=== PATIENT | female | born 1995 | race Caucasian/White ===

== ENCOUNTER → 2021-01-22 | Outpatient (CLI) | payer BC ==
--- NOTE | 2021-01-23 06:45 | CT ---
EXAMINATION TYPE: CT abdomen pelvis wo con DATE OF EXAM: 01/22/2021 HISTORY: right pelvic pain x2 months CT DLP: 826.8 mGycm. Automated Exposure Control for Dose Reduction was Utilized. TECHNIQUE: CT scan of the abdomen and pelvis is performed with oral but without IV contrast. COMPARISON: NONE FINDINGS: Within the limitations of a non-contrast study, the following observations are made. LUNG BASES: No significant abnormality is appreciated. LIVER/GB: No significant abnormality is appreciated. PANCREAS: No significant abnormality is seen. SPLEEN: No significant abnormality is seen. ADRENALS: No significant abnormality is seen. KIDNEYS: Asymmetric fullness to right renal pelvis without calyceal dilatation or hydroureter consist ent with extrarenal pelvis. BOWEL: Oral contrast reaches level of the right colon. No suspicious small or large bowel dilatation. GENITAL ORGANS: Anteverted uterus. Normal size left ovary axial image 78. Right ovary is slightly lar george with adnexal lesion measuring 3.3 x 3.1 cm axial image 81, this has areas of fat, soft tissue, an d fluid density consistent with dermoid. LYMPH NODES: No greater than 1cm abdominal or pelvic lymph nodes are appreciated. OSSEOUS STRUCTURES: No significant abnormality is seen. OTHER: No significant additional abnormality is seen. IMPRESSION: There is 3.3 cm right ovarian mass that has different densities including fat density con sistent with dermoid. Advise gynecology oncology referral.
== END | disposition home or self-care (01) ==
LOC: RADCTMAIN 16:51
PROVIDERS: ATTEND Family Medicine
DX: N83.8 Other noninflammatory disorders of ovary, fallopian tube and broad ligament (principal)
CPT/HCPCS: 74176

== ENCOUNTER → 2021-02-10 | Outpatient (CLI) | payer BC | END | disposition home or self-care (01) | LOC: LABWHC1 16:32 | PROVIDERS: ATTEND Obstetrics & Gynecology Obstetrics | DX: N83.209 Unspecified ovarian cyst, unspecified side (principal); N83.8 Other noninflammatory disorders of ovary, fallopian tube and broad ligament | CPT/HCPCS: 36415 ==

== ENCOUNTER 2022-03-04 12:12 | Outpatient (CLI) | payer BC ==
[2022-03-04 13:16] LABS: Appearance,Urine Clear (Clear); Bilirubin,Urine Negative (Negative); Blood,Urine Negative (Negative); Color,Urine Colorless; Glucose,Urine (UA) Negative (Negative); Ketones,Urine 1+ (Negative); Leukocyte Esterase,Urine Negative (Negative); Nitrite,Urine Negative (Negative); Protein,Urine Negative (Negative); Specific Gravity,Urine 1.002 (1.001-1.035); Urobilinogen,Urine <2.0 mg/dL (<2.0)
[2022-03-04 13:27] LABS: Glucose,Whole Blood 67 mg/dL (70-110)
[2022-03-04 14:09] VITALS: BP 125/65; PULSE 81; RESP 16; TEMP 98.1
--- NOTE | 2022-03-09 14:38 | P.MSEPDOC ---
Presenting Problems - Arrival Data Date of Arrival on Unit: 03/04/22 Time of Arrival on Unit: 12:12 Mode of Transport: Ambulatory - Complaint OB-Reason for Admission/Chief Complaint: Other Comment: pt feeling flushed and racing heartrate Medical History - Information : 1 Para: 0 Term: 0 : 0 Abortions: Spontaneous or Elective: 0 Number of Living Children: 0 - Gestational Age Gestational Age by ARMANDO (wks/days): 17 Weeks and 6 Days Review of Systems - Review of Systems Constitutional: No problems Breast: No problems ENT: No problems Cardiovascular: No problems Respiratory: No problems Gastrointestinal: No problems Genitourinary: No problems Musculoskeletal: No problems Neurological: No problems Skin: No problems Comment: pt's face is very flushed in appearance Vital Signs - Temperature Temperature: 98.1 F Temperature Source: Temporal Artery Scan - Pulse Right Pulse Rate: 81 Pulse Assessment Method: Automatic Cuff - Respirations Respiratory Rate: 16 Oxygen Delivery Method: Room Air O2 Sat by Pulse Oximetry: 100 - Blood Pressure Right Arm Blood Pressure: 125/65 Blood Pressure Mean: 85 Blood Pressure Source: Automatic Cuff Medical Screen Scoring - Assessment - Baby A Baseline FHR: 140 Heart Rate - NICHD Category: Category I (Normal) Physician Notification - Physician Notified Physician Notified Date: 03/04/22 Physician Notified Time: 12:45 Physician: Melanie Bills New Order Received: Yes (ua, covid/flu swab serial pressures) Maternal Triage Index - Scheduled/Requesting Priority 5 Scheduled/Requesting Priority 5: Yes Criteria Met for Priority 5: 17 6/7 presents with flushed skin, perceived rapid heartrate however vitals are wnl and doppler reveals fhr 140, Disposition - Disposition OB Disposition: Triage Discharge Date: 03/04/22 Discharge Time: 14:55 I agree with the RN Medical Screening Exam: Yes Case reviewed; plan agreed upon as documented in EMR&OBIX.: Yes Diagnosis: RELATED CONDITIONS, UNSPECIFIED, SECOND TRIMESTER
== END 2022-03-04 14:55 | disposition home or self-care (01) ==
LOC: FBPOP 12:12
PROVIDERS: ATTEND Obstetrics & Gynecology Obstetrics
DX: O26.892 Other specified pregnancy related conditions, second trimester (principal); Z3A.17 17 weeks gestation of pregnancy; R00.0 Tachycardia, unspecified; R03.0 Elevated blood-pressure reading, without diagnosis of hypertension
CPT/HCPCS: 81003; 87636; 99213

== ENCOUNTER → 2022-05-21 | Outpatient (CLI) | payer BC ==
[2022-05-21 22:59] LABS: HCT 38.9 % (37.2-46.3); MCH 27.8 pg (27.0-32.0); MCHC 30.8 g/dL (32.0-37.0); Mean Platelet Volume 11.9 fL (9.5-12.2); NRBC Per 100 WBC 0 /100 WBCS (0.0-0.0); Platelet Count 201 X 10*3/uL (140-440); RBC 4.32 X 10*6/uL (4.10-5.20); RDW 14.8 % (11.5-14.5); WBC 13.16 X 10*3/uL (4.50-10.00)
== END | disposition home or self-care (01) ==
LOC: LABWHC1 13:35
PROVIDERS: ATTEND Obstetrics & Gynecology Obstetrics
DX: Z36.9 Encounter for antenatal screening, unspecified (principal)
CPT/HCPCS: 36415; 82950; 85027

== ENCOUNTER 2022-07-11 01:28 | Outpatient (CLI) | payer BC ==
[2022-07-11 03:14] VITALS: BP 134/78; PULSE 75; RESP 16; TEMP 97.4
--- NOTE | 2022-08-15 10:16 | P.MSEPDOC ---
Presenting Problems - Arrival Data Date of Arrival on Unit: 07/11/22 Time of Arrival on Unit: 01:28 Mode of Transport: Ambulatory - Complaint OB-Reason for Admission/Chief Complaint: Pain Comment: Pt is a with ARMANDO 08/06/22 here at 36.2 weeks of gestation with c/o. right-sided upper back pain, just under the right shoulder blade. Pt rates the pain 7/10. on a 0-10 scale. Pt denies any other concerns or complications at this time. Medical History - Information : 1 Para: 0 Term: 0 : 0 Abortions: Spontaneous or Elective: 0 Number of Living Children: 0 - Gestational Age Gestational Age by ARMANDO (wks/days): 36 Weeks and 2 Days Review of Systems - Review of Systems Constitutional: No problems Breast: No problems ENT: No problems Cardiovascular: No problems Respiratory: No problems Gastrointestinal: No problems Genitourinary: No problems Musculoskeletal: No problems Neurological: No problems Skin: No problems Vital Signs - Temperature Temperature: 97.4 F Temperature Source: Temporal Artery Scan - Pulse Pulse Oximetery Pulse Rate: 75 Pulse Assessment Method: Pulse Oximetry - Respirations Respiratory Rate: 16 Oxygen Delivery Method: Room Air O2 Sat by Pulse Oximetry: 100 - Blood Pressure Right Arm Blood Pressure: 134/78 Blood Pressure Mean: 96 Blood Pressure Source: Automatic Cuff Medical Screen Scoring - Cervical Exam Membranes: Intact - Uterine Contractions Frequency From (mins): 4 Frequency To (mins): 8 Duration From (seconds): 50 Duration To (seconds): 100 Intensity: Mild Resting: Soft to palpation - Assessment - Baby A Baseline FHR: 125 Heart Rate - NICHD Category: Category I (Normal) NST: Reactive Physician Notification - Physician Notified Physician Notified Date: 07/11/22 Physician Notified Time: 01:46 Physician: Melanie Bills S - Notification Comment Comment: Dr. Bills notified of pt's arrival to triage. Pt had spoken with physician. prior to arrival. Maternal and status reported including location and quality of. pt's pain, FHTs and uterine activity. Orders for SVE d/t UC's, repeat in 1 hour, if no. change can D/C home. RN to discuss POC with pt and SO. Maternal Triage Index - Maternal Triage Index Presenting for scheduled procedure w/no complaint: No - Stat/Priority 1 Stat Priority 1: No - Urgent/Priority 2 Urgent Priority 2: No - Prompt/Priority 3 Prompt Priority 3: No - Non-Urgent/Priority 4 Non-Urgent Priority 4: Yes Criteria Met for Priority 4: Pt is a with ARMANDO 08/06/22 here at 36.2 weeks of gestation with c/o. right-sided upper back pain, just under the right shoulder blade. Pt rates the pain 7/10. on a 0-10 scale. Pt denies any other concerns or complications at this time. Disposition - Disposition OB Disposition: Discharge to home Discharge Date: 07/11/22 Discharge Time: 03:06 I agree with the RN Medical Screening Exam: Yes Case reviewed; plan agreed upon as documented in EMR&OBIX.: Yes Diagnosis: RELATED CONDITIONS, UNSPECIFIED, THIRD TRIMESTER
== END 2022-07-11 03:06 ==
LOC: FBPOP 01:28
PROVIDERS: ATTEND Obstetrics & Gynecology Obstetrics
DX: O26.893 Other specified pregnancy related conditions, third trimester (principal); M54.6 Pain in thoracic spine; Z3A.36 36 weeks gestation of pregnancy
CPT/HCPCS: 59025; 99213

== ENCOUNTER 2022-07-15 10:50 | Outpatient (CLI) | payer BC ==
[2022-07-15] MEDS ORDERED: ONDANSETRON 4 MG/2 ML VIAL IVP STA (11:57)
[2022-07-15] MEDS ORDERED: ACETAMINOPHEN IV (For NPO) 1,000 MG in EMPTY BAG 1 BAG IVPB STA (11:57)
[2022-07-15] MEDS ORDERED: LACTATED RINGERS 1,000 ML IV SCH (12:00)
[2022-07-15 12:06] LABS: Appearance,Urine Clear (Clear); Bacteria,Urine Rare /hpf; Bilirubin,Urine Negative (Negative); Blood,Urine Negative (Negative); Color,Urine Light Yellow; Glucose,Urine (UA) Negative (Negative); Ketones,Urine Negative (Negative); Leukocyte Esterase,Urine Trace (Negative); Mucus,Urine Rare /hpf; Nitrite,Urine Negative (Negative); PH, Urine 6.5 (5.0-8.0); Protein,Urine Negative (Negative); RBC,Urine 1 /hpf (0-5); Squamous Epithelial Cell,Urine 6 /hpf (0-4); Urobilinogen,Urine <2.0 mg/dL (<2.0); WBC,Urine 1 /hpf (0-5)
[2022-07-15 13:00] LABS: Basophils % (A) 0 %; Eosinophils # (A) 0.1 k/uL (0-0.7); Eosinophils % (A) 1 %; HCT 36.7 % (34.0-46.0); HGB 11.9 gm/dL (11.4-16.0); Lymphocytes # (A) 1.5 k/uL (1.0-4.8); Lymphocytes % (A) 13 %; MCH 27.5 pg (25.0-35.0); MCHC 32.5 g/dL (31.0-37.0); MCV 84.8 fL (80.0-100.0); Mean Platelet Volume 9.6; Monocytes # (A) 0.4 k/uL (0-1.0); Monocytes % (A) 4 %; Neutrophils # (A) 9.1 k/uL (1.3-7.7); Neutrophils % (A) 81 %; Platelet Count 168 k/uL (150-450); RBC 4.33 m/uL (3.80-5.40); WBC 11.3 k/uL (3.8-10.6)
[2022-07-15 13:11] LABS: Uric Acid 3.5 mg/dL (3.7-7.4)
[2022-07-15 13:26] LABS: Creatinine,Urine Random 61.7 mg/dL; Protein/Creatinine Ratio,Urine 0.13
[2022-07-15 21:53] VITALS: BP 133/83; PULSE 88; RESP 16; TEMP 97.3
--- NOTE | 2022-08-15 10:18 | P.MSEPDOC ---
Presenting Problems - Arrival Data Date of Arrival on Unit: 07/15/22 Time of Arrival on Unit: 10:50 Mode of Transport: Ambulatory - Complaint OB-Reason for Admission/Chief Complaint: Headache Comment: Comment: pt has severe headache and nausea today starting around 0130 Medical History - Information : 1 Para: 0 Term: 0 : 0 Abortions: Spontaneous or Elective: 0 Number of Living Children: 0 - Gestational Age Gestational Age by ARMANDO (wks/days): 36 Weeks and 6 Days Review of Systems - Review of Systems Constitutional: No problems Breast: No problems ENT: No problems Cardiovascular: No problems Respiratory: No problems Gastrointestinal: No problems Genitourinary: No problems Musculoskeletal: No problems Neurological: No problems Skin: No problems Comment: Dr. Bills in dept and given report on pt's c/o headache and nausea that started. at 0130 this am, took tylenol but did not seem to help, reactive nst, irregular. contrations, ua results not back yet, orders to give 1 liter of LR, zofran and. offirmive, Vital Signs - Temperature Temperature: 97.3 F Temperature Source: Tympanic - Pulse Right Pulse Rate: 88 Pulse Assessment Method: Automatic Cuff - Respirations Respiratory Rate: 16 Oxygen Delivery Method: Room Air O2 Sat by Pulse Oximetry: 100 - Blood Pressure Right Arm Blood Pressure: 133/83 Blood Pressure Mean: 99 Blood Pressure Source: Automatic Cuff Medical Screen Scoring - Assessment - Baby A Baseline FHR: 130 Heart Rate - NICHD Category: Category I (Normal) NST: Reactive Physician Notification - Physician Notified Physician Notified Date: 07/15/22 Physician Notified Time: 13:30 Physician: Melanie Bills New Order Received: Yes - Notification Comment Comment: DISCHARGE Maternal Triage Index - Maternal Triage Index Presenting for scheduled procedure w/no complaint: No - Stat/Priority 1 Stat Priority 1: No - Urgent/Priority 2 Urgent Priority 2: No - Prompt/Priority 3 Prompt Priority 3: Yes Criteria Met for Priority 3: discussed isolated elevated bp of 161/[address] Bills. Decision made to do PIH. work up. Lab orders entered - Non-Urgent/Priority 4 Non-Urgent Priority 4: Yes Criteria Met for Priority 4: 3 Disposition - Disposition OB Disposition: Discharge to home Discharge Date: 07/15/22 Discharge Time: 14:00 I agree with the RN Medical Screening Exam: Yes Case reviewed; plan agreed upon as documented in EMR&OBIX.: Yes Diagnosis: HEADACHE, UNSPECIFIED
== END 2022-07-15 14:00 | disposition home or self-care (01) ==
LOC: FBPOP 10:50
PROVIDERS: ATTEND Obstetrics & Gynecology Obstetrics
DX: O99.891 Other specified diseases and conditions complicating pregnancy (principal); R51.9 Headache, unspecified; R11.0 Nausea; Z3A.36 36 weeks gestation of pregnancy
CPT/HCPCS: 59025; 99213; 96361; 96365; 96367; 96375; 36415; 82570; 84156; 83615; 84450; 84460; 84520; 84550; 85025; 81001; J2405; J0131

== ENCOUNTER 2022-07-29 20:34 | Inpatient (IN) | payer BC ==
[2022-07-29] MEDS ORDERED: ACETAMINOPHEN IV (For NPO) 1,000 MG in EMPTY BAG 1 BAG IVPB STA (20:55)
[2022-07-29] MEDS: LACTATED RINGERS 1,000 ML IV SCH (21:30)
--- NOTE | 2022-07-29 21:37 | US ---
EXAMINATION TYPE: US gallbladder DATE OF EXAM: 07/29/2022 COMPARISON: CT abdomen and pelvis January 22, 2021 CLINICAL HISTORY: abdominal pain. Epigastric pain. Pt is TECHNIQUE: Multiple sonographic images of the right upper quadrant are obtained. 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 Dilated margins Evidence for sonographic [place]'s sign: No CBD: wnl Right Kidney: Moderate to severe hydronephrosis seen. Visualized pancreas is unremarkable. Portion of distal body and tail obscured by overlying bowel gas. Visualized liver shows no worrisome mass or ductal dilatation. There are small mobile shadowing gall stones. No abnormal wall thickening or adjacent fluid. IMPRESSION: Small gallstones without secondary ultrasound evidence for acute cholecystitis. Moderate- to-severe right-sided hydronephrosis also noted.
[2022-07-29 22:05] LABS: Basophils % (A) 0 %; Eosinophils % (A) 0 %; HGB 12.1 gm/dL (11.4-16.0); Lymphocytes % (A) 7 %; MCH 27.6 pg (25.0-35.0); MCHC 32.7 g/dL (31.0-37.0); MCV 84.4 fL (80.0-100.0); Mean Platelet Volume 9.7; Monocytes # (A) 0.6 k/uL (0-1.0); Monocytes % (A) 4 %; Neutrophils # (A) 13.5 k/uL (1.3-7.7); Neutrophils % (A) 88 %; Platelet Count 183 k/uL (150-450); RBC 4.39 m/uL (3.80-5.40); WBC 15.3 k/uL (3.8-10.6)
[2022-07-29 22:09] LABS: ALT 44 U/L (4-34); AST 81 U/L (14-36); African American GFR (CKD) >90 (>60 ml/min/1.73 sqM); Albumin 3.1 g/dL (3.5-5.0); Alkaline Phosphatase 187 U/L (38-126); Anion Gap 7 mmol/L; Blood Urea Nitrogen 9 mg/dL (7-17); Calcium 8.5 mg/dL (8.4-10.2); Carbon Dioxide 21 mmol/L (22-30); Chloride 105 mmol/L (98-107); Glucose 122 mg/dL (74-99); Non-African American GFR(CKD) >90 (>60 ml/min/1.73 sqM); Sodium 133 mmol/L (137-145); Total Protein 5.9 g/dL (6.3-8.2)
[2022-07-29] MEDS ORDERED: ACETAMINOPHEN IV (For NPO) 1,000 MG in EMPTY BAG 1 BAG IVPB PRN (23:05)
[2022-07-30] MEDS: LACTATED RINGERS 1,000 ML IV SCH ×4 (05:21→18:17)
[2022-07-30 07:39] LABS: Basophils % (A) 0 %; Eosinophils % (A) 0 %; HGB 12.2 gm/dL (11.4-16.0); Lymphocytes # (A) 1.3 k/uL (1.0-4.8); Lymphocytes % (A) 11 %; MCHC 32.9 g/dL (31.0-37.0); MCV 85.1 fL (80.0-100.0); Mean Platelet Volume 9.7; Monocytes # (A) 0.7 k/uL (0-1.0); Monocytes % (A) 6 %; Neutrophils # (A) 9.5 k/uL (1.3-7.7); Neutrophils % (A) 81 %; Platelet Count 187 k/uL (150-450); RBC 4.35 m/uL (3.80-5.40); RDW 15.1 % (11.5-15.5); WBC 11.7 k/uL (3.8-10.6)
[2022-07-30 08:05] LABS: ALT 74 U/L (4-34); AST 90 U/L (14-36); African American GFR (CKD) >90 (>60 ml/min/1.73 sqM); Albumin 2.9 g/dL (3.5-5.0); Alkaline Phosphatase 210 U/L (38-126); Amylase 47 U/L (30-110); Anion Gap 7 mmol/L; Blood Urea Nitrogen 6 mg/dL (7-17); Calcium 8.2 mg/dL (8.4-10.2); Carbon Dioxide 20 mmol/L (22-30); Chloride 108 mmol/L (98-107); Glucose 81 mg/dL (74-99); Lipase 211 U/L (23-300); Non-African American GFR(CKD) >90 (>60 ml/min/1.73 sqM); Potassium 4.4 mmol/L (3.5-5.1); Sodium 135 mmol/L (137-145); Total Bilirubin 1.2 mg/dL (0.2-1.3); Total Protein 5.5 g/dL (6.3-8.2)
[2022-07-30] MEDS ORDERED: TRANEXAMIC ACID IN NACL,ISO-OS 1,000 MG in EMPTY BAG 1 BAG IV PRN ×2 (08:28→21:10)
[2022-07-30] MEDS ORDERED: OXYTOCIN 10 UNIT/ML 1 ML VIAL IM PRN ×2 (08:28→21:10)
[2022-07-30] MEDS ORDERED: miSOPROStoL 200 MCG TAB PO PRN ×2 (08:28→21:10)
[2022-07-30] MEDS ORDERED: BUTORPHANOL 1 MG/ML 1 ML VIAL IV PRN (08:28)
[2022-07-30] MEDS ORDERED: CARBOPROST TROMETHAMINE 250 MCG/ML 1 ML AMP IM PRN ×2 (08:28→21:10)
[2022-07-30] MEDS ORDERED: METHYLERGONOVINE 0.2 MG/ML 1 ML AMP IM PRN ×2 (08:28→21:10)
[2022-07-30] MEDS ORDERED: LIDOCAINE 0.5% (PF) 5 MG/ML (50 ML SDV) SQ PRN (08:28)
[2022-07-30] MEDS ORDERED: TERBUTALINE 1 MG/ML VIAL SQ PRN (08:28)
--- NOTE | 2022-07-30 08:28 | P.HPOB ---
History of Present Illness H&P Date: 07/30/22 Chief Complaint: IUP at 39-0/7 weeks, acute biliary colic This is a 27-year-old 1 para 0 at 39-0/7 weeks that presented last evening with complaints of severe right upper quadrant pain. Patient states she had eaten a full pork sandwich and had a Dairy Lira blizzard onto the pain was after eating. Patient states she has had pain at times throughout the with nausea diaphoresis in the thoracic area. Patient states pain last night was different and more intense. Patient presented to triage where acute biliary colic was appreciated. Ultrasound revealing stones within the gallbladder c/w acute cholecystitis. Patient has been receiving routine care which has been essentially uncomplicated. Patient does note good movement she denies contractions vaginal bleeding or loss of fluid. On bloodwork this patient is a blood type of O+, rubella status immune, hepatitis B surface antigen negative, RPR is nonreactive, HIV is nonreactive Review of Systems Constitutional: Denies chills, Denies fatigue, Denies fever Ears, nose, mouth and throat: Denies headache Cardiovascular: Reports leg edema Respiratory: Denies dyspnea Gastrointestinal: Reports as per HPI, Reports abdominal pain, Reports nausea, Reports vomiting, Denies constipation, Denies diarrhea Genitourinary: Reports Past Medical History Past Medical History: No Reported History History of Any Multi-Drug Resistant Organisms: None Reported Past Surgical History: No Surgical Hx Reported Smoking Status: Never smoker Medications and Allergies Home Medications Medication Instructions Recorded Confirmed Type Aspirin [Children's Aspirin] 81 mg PO DAILY 03/04/22 07/15/22 History Vit No.179/Iron/Folic 1 each PO DAILY 07/11/22 07/15/22 History [ Tablet] Acetaminophen [Tylenol] 325 mg PO Q4-6H PRN 07/15/22 07/15/22 History Allergies Allergy/AdvReac Type Severity Reaction Status Date / Time No Known Allergies Allergy Verified 07/15/22 11:06 Exam Osteopathic Statement: *. No significant issues noted on an osteopathic struc tural exam other than those noted in the History and Physical/Consult. 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 heart tones are noted to be category 1 and she is tracey irregularly. Results Result Diagrams: 07/30/22 07:08 07/30/22 07:08 Abnormal Lab Results - Last 24 Hours (Table) 07/29/22 07/29/22 07/30/22 Range/Units 21:25 21:25 07:08 WBC 15.3 H 11.7 H (3.8-10.6) k/uL Neutrophils # 13.5 H 9.5 H (1.3-7.7) k/uL Sodium 133 L (137-145) mmol/L Chloride (98-107) mmol/L Carbon Dioxide 21 L (22-30) mmol/L BUN (7-17) mg/dL Creatinine 0.47 L (0.52-1.04) mg/dL Glucose 122 H (74-99) mg/dL Calcium (8.4-10.2) mg/dL AST 81 H (14-36) U/L ALT 44 H (4-34) U/L Alkaline Phosphatase 187 H (38-126) U/L Total Protein 5.9 L (6.3-8.2) g/dL Albumin 3.1 L (3.5-5.0) g/dL 07/30/22 Range/Units 07:08 WBC (3.8-10.6) k/uL Neutrophils # (1.3-7.7) k/uL Sodium 135 L (137-145) mmol/L Chloride 108 H (98-107) mmol/L Carbon Dioxide 20 L (22-30) mmol/L BUN 6 L (7-17) mg/dL Creatinine (0.52-1.04) mg/dL Glucose (74-99) mg/dL Calcium 8.2 L (8.4-10.2) mg/dL AST 90 H (14-36) U/L ALT 74 H (4-34) U/L Alkaline Phosphatase 210 H (38-126) U/L Total Protein 5.5 L (6.3-8.2) g/dL Albumin 2.9 L (3.5-5.0) g/dL Assessment and Plan (1) Term Current Visit: Yes Status: Acute Code(s): Z34.90 - ENCNTR FOR SUPRVSN OF NORMAL , UNSP, UNSP TRIMESTER SNOMED Code(s): 28869999 (2) Biliary colic Current Visit: Yes Status: Acute Code(s): K80.50 - CALCULUS OF BILE DUCT W/O CHOLANGITIS OR CHOLECYST W/O OBST SNOMED Code(s): 44646926 (3) Acute cholecystitis Current Visit: Yes Status: Acute Code(s): K81.0 - ACUTE CHOLECYSTITIS SNOMED Code(s): 87278767 Plan: 27-year-old 1 para 0 at 39 0/7 weeks that presented last evening with complaints of abdominal pain. Patient had noted elevated liver functions ultrasound revealing cholecystitis. Patient is admitted for induction of labor secondary to acute biliary colic. Patient states understanding. Pitocin induction of labor is begun, amniotomy is performed. Options for analgesia are discussed including Stadol and epidural. Patient will consider.
[2022-07-30] MEDS ORDERED: OXYTOCIN 30 UNITS/500 ML NS 30 UNIT in SALINE 1 500ML.BAG IV SCH (08:30)
--- NOTE | 2022-07-30 16:37 | P.GSCN ---
History of Present Illness Consult date: 07/30/22 Reason for Consult: Right upper quadrant pain History of present illness: 27-year-old female 39 weeks presents to the hospital with right upper quadrant pain. Patient states she has had some milder episodes during this . She was evaluated previously for gallstones with prior ultrasound being normal. His admission ultrasound showed cholelithiasis without inflammatory changes. Patient was also noted to have significant right-sided hydronephrosis. Patient was induced today and progressing well per the nursing staff. No change in the color of her skin urine or stool. Says her right upper quadrant pain is improved but now she is having labor pains. Patient's liver enzymes are slightly elevated. Bilirubin normal. Review of Systems The patient denies any acute changes in vision or hearing, no dysphagia or odynophagia, no chest pain or shortness of breath, no dysuria or hematuria, no headache, no runny nose, no rectal bleeding or melena, no unexplained weight loss Past Medical History Past Medical History: No Reported History History of Any Multi-Drug Resistant Organisms: None Reported Past Surgical History: No Surgical Hx Reported Smoking Status: Never smoker Medications and Allergies Home Medications Medication Instructions Recorded Confirmed Type Aspirin [Children's Aspirin] 81 mg PO DAILY 03/04/22 07/15/22 History Vit No.179/Iron/Folic 1 each PO DAILY 07/11/22 07/15/22 History [ Tablet] Acetaminophen [Tylenol] 325 mg PO Q4-6H PRN 07/15/22 07/15/22 History Allergies Allergy/AdvReac Type Severity Reaction Status Date / Time No Known Allergies Allergy Verified 07/15/22 11:06 Surgical - Exam Vital Signs Temp Pulse Resp BP 96.8 F L 85 18 134/66 07/29/22 20:41 07/29/22 20:41 07/29/22 20:41 07/29/22 20:41 Physical exam: General: Well-developed, well-nourished HEENT: Normocephalic, sclerae nonicteric Abdomen: Gravid abdomen, mild diffuse tenderness Extremities: No edema Neuro: Alert and oriented Results - Labs 07/30/22 07:08 07/30/22 07:08 Abnormal Lab Results - Last 24 Hours (Table) 07/29/22 07/29/22 07/30/22 Range/Units 21:25 21:25 07:08 WBC 15.3 H 11.7 H (3.8-10.6) k/uL Neutrophils # 13.5 H 9.5 H (1.3-7.7) k/uL Sodium 133 L (137-145) mmol/L Chloride (98-107) mmol/L Carbon Dioxide 21 L (22-30) mmol/L BUN (7-17) mg/dL Creatinine 0.47 L (0.52-1.04) mg/dL Glucose 122 H (74-99) mg/dL Calcium (8.4-10.2) mg/dL AST 81 H (14-36) U/L ALT 44 H (4-34) U/L Alkaline Phosphatase 187 H (38-126) U/L Total Protein 5.9 L (6.3-8.2) g/dL Albumin 3.1 L (3.5-5.0) g/dL 07/30/22 Range/Units 07:08 WBC (3.8-10.6) k/uL Neutrophils # (1.3-7.7) k/uL Sodium 135 L (137-145) mmol/L Chloride 108 H (98-107) mmol/L Carbon Dioxide 20 L (22-30) mmol/L BUN 6 L (7-17) mg/dL Creatinine (0.52-1.04) mg/dL Glucose (74-99) mg/dL Calcium 8.2 L (8.4-10.2) mg/dL AST 90 H (14-36) U/L ALT 74 H (4-34) U/L Alkaline Phosphatase 210 H (38-126) U/L Total Protein 5.5 L (6.3-8.2) g/dL Albumin 2.9 L (3.5-5.0) g/dL Diabetes panel 07/29/22 07/30/22 Range/Units 21:25 07:08 Sodium 133 L 135 L (137-145) mmol/L Potassium 4.0 4.4 (3.5-5.1) mmol/L Chloride 105 108 H (98-107) mmol/L Carbon Dioxide 21 L 20 L (22-30) mmol/L BUN 9 6 L (7-17) mg/dL Creatinine 0.47 L 0.53 (0.52-1.04) mg/dL Glucose 122 H 81 (74-99) mg/dL Calcium 8.5 8.2 L (8.4-10.2) mg/dL AST 81 H 90 H (14-36) U/L ALT 44 H 74 H (4-34) U/L Alkaline Phosphatase 187 H 210 H (38-126) U/L Total Protein 5.9 L 5.5 L (6.3-8.2) g/dL Albumin 3.1 L 2.9 L (3.5-5.0) g/dL Calcium panel 07/29/22 07/30/22 Range/Units 21:25 07:08 Calcium 8.5 8.2 L (8.4-10.2) mg/dL Albumin 3.1 L 2.9 L (3.5-5.0) g/dL Pituitary panel 07/29/22 07/30/22 Range/Units 21:25 07:08 Sodium 133 L 135 L (137-145) mmol/L Potassium 4.0 4.4 (3.5-5.1) mmol/L Chloride 105 108 H (98-107) mmol/L Carbon Dioxide 21 L 20 L (22-30) mmol/L BUN 9 6 L (7-17) mg/dL Creatinine 0.47 L 0.53 (0.52-1.04) mg/dL Glucose 122 H 81 (74-99) mg/dL Calcium 8.5 8.2 L (8.4-10.2) mg/dL Adrenal panel 07/29/22 07/30/22 Range/Units 21:25 07:08 Sodium 133 L 135 L (137-145) mmol/L Potassium 4.0 4.4 (3.5-5.1) mmol/L Chloride 105 108 H (98-107) mmol/L Carbon Dioxide 21 L 20 L (22-30) mmol/L BUN 9 6 L (7-17) mg/dL Creatinine 0.47 L 0.53 (0.52-1.04) mg/dL Glucose 122 H 81 (74-99) mg/dL Calcium 8.5 8.2 L (8.4-10.2) mg/dL Total Bilirubin 1.0 1.2 (0.2-1.3) mg/dL AST 81 H 90 H (14-36) U/L ALT 44 H 74 H (4-34) U/L Alkaline Phosphatase 187 H 210 H (38-126) U/L Total Protein 5.9 L 5.5 L (6.3-8.2) g/dL Albumin 3.1 L 2.9 L (3.5-5.0) g/dL Assessment and Plan (1) Biliary colic Narrative/Plan: 27-year-old female with biliary colic. Recheck labs tomorrow. Continue with induction as planned per OB. Will follow. Current Visit: Yes Status: Acute Code(s): K80.50 - CALCULUS OF BILE DUCT W/O CHOLANGITIS OR CHOLECYST W/O OBST SNOMED Code(s): 85843551
[2022-07-30] MEDS ORDERED: SODIUM CHLORIDE 0.9% 100 ML BAG ONE ×2 (16:55→20:11)
[2022-07-30] MEDS ORDERED: ROPIVACAINE 5 MG/ML 20 ML AMPULE ONE (16:55)
[2022-07-30] MEDS ORDERED: fentaNYL (PF) 50 MCG/ML 5 ML AMP ONE (16:55)
[2022-07-30] MEDS ORDERED: SIMETHICONE 80 MG CHEWABLE PO PRN (19:39)
[2022-07-30] MEDS ORDERED: diphenhydrAMINE 50 MG CAP PO PRN (19:39)
[2022-07-30] MEDS ORDERED: NALOXONE 0.4 MG/ML 1 ML VIAL IV PRN (19:39)
[2022-07-30] MEDS ORDERED: METOCLOPRAMIDE 5 MG/ML 2 ML VIAL IVP PRN (19:39)
[2022-07-30] MEDS ORDERED: diphenhydrAMINE 50 MG/ML 1 ML VIAL IVP PRN ×2 (19:39)
[2022-07-30] MEDS ORDERED: ZOLPIDEM 5 MG TAB PO PRN (19:39)
[2022-07-30] MEDS ORDERED: ONDANSETRON 4 MG/2 ML VIAL IVP PRN (19:39)
[2022-07-30] MEDS ORDERED: diphenhydrAMINE 25 MG CAP PO PRN (19:39)
[2022-07-30] MEDS ORDERED: fentaNYL (PF) 50 MCG/ML 2 ML AMP ONE (20:11)
[2022-07-30] MEDS ORDERED: MORPHINE SULFATE (PF) 0.3 MG/0.3 ML SYR ONE (20:11)
[2022-07-30] MEDS ORDERED: ONDANSETRON 4 MG/2 ML VIAL ONE (20:11)
[2022-07-30] MEDS ORDERED: LIDOCAINE HCL/PF 20 MG/ML 10 ML AMP ONE (20:11)
[2022-07-30] MEDS ORDERED: ceFAZolin 1,000 MG VIAL ONE (20:11)
--- NOTE | 2022-07-30 21:05 | P.OP ---
Date of Procedure: 07/30/22 Preoperative Diagnosis: IUP at 39 0/7 weeks, intolerance of labor, arrest of dilation Postoperative Diagnosis: Same Procedure(s) Performed: Primary low transverse section Anesthesia: epidural Surgeon: Melanie Bills Communications Editor #1: Nitin Sood Estimated Blood Loss (ml): 593 IV fluids (ml): 800 Urine output (ml): 50 (Clear yellow) Pathology: none sent Condition: stable Disposition: observation Indications for Procedure: 27-year-old 1 para 0 admitted over the evening with biliary colic and acute cholecystitis. Patient was quite uncomfortable at the time. Decision was made to proceed with induction of labor and given these diagnoses. Patient was admitted and Pitocin induction of labor was begun. Amniotomy is performed and clear fluid was obtained. Patient made slow progress through the day but did become uncomfortable and requested epidural placement. After epidural was placed late decelerations began happening. Pitocin was turned off heart tones were noted to be reassuring Pitocin was begun again, late decelerations continued despite position changes. Cervical exam revealed no change in dilation. Exam and monitoring strip were discussed with patient and , decision to proceed with primary was made for agreement with patient and patient's . Operative Findings: Normal uterus tubes and ovaries were appreciated, follicular cyst appreciated on the patient's left ovary simple in nature. Viable male delivered at 2023, weight of 7 lbs. 14 oz. occiput anterior presentation. Description of Procedure: The patient was prepped and draped in the usual fashion after epidural anesthesia was found be adequate. A Pfannenstiel incision was made and extended of the abdominal cavity without difficulty. The bladder peritoneum was elevated and incised and reflected distally. A 2 cm incision was made in the transverse plane of the lower uterine segment to enter the uterus at which time clear fluid was noted. The incision was extended in both directions using the bandage scissors. The head was encountered within the field and delivered up and through the incision where the nose and mouth were thoroughly suctioned. Remainder of the infant was delivered onto the surgical field where the cord was doubly clamped, cut, and the infant was passed for resuscitative measures with weight and Apgars as noted above. A segment of cord was then doubly clamped, cut, and set aside should cord gases become necessary. The placenta was delivered manually, intact, and was grossly normal with a grossly normal three- vessel cord. The uterus was exteriorized and the interior cavity of the uterus swept of any remaining placental and membranous fragments with a laparotomy sponge. The margins of the incision were grasped with Allis clamps and the incision closed in 2 layers. First layer was a running locking layer of 0 Vicryl from margin to margin followed by a second layer of imbricating 0 Vicryl from margin to margin. Bleeding was noted on the left-hand side of the uterine incision to [id number] sutures were used to obtain hemostasis. A small amount of oozing remainder therefore Surgicel powder was placed along the hysterotomy incision Any small points of bleeding were then made hemostatic with the Bovie. Once hemostasis was achieved, the posterior cul-de-sac was suctioned with a guard and the uterine and ovarian findings are as noted above. The uterus was replaced within the abdominal cavity and the gutters swept of any remaining blood fluid or clot. The incision was again reexamined and hemostasis was noted to be excellent. Any small point of bleeding were made hemostatic with the Bovie. Once hemostasis was achieved the parietal peritoneum was loosely reapproximated. The layer of muscles were examined and made hemostatic with the Bovie. Attention was then turned to the fascia which was closed with 2 running stitches of 0 Vicryl proceeding from the lateral margins to the midpoint. The subcutaneous tissues were irrigated, made hemostatic with the Bovie, and reapproximated with a running stitch of 30 plain catgut. The skin was reapproximated with regular surgical faina. Estimated blood loss for the case was approximately 593 mL. All sponge instrument and needle counts are correct. There were no complications. The patient tolerated the procedure well and proceeded to the recovery room in stable condition. Both mother and infant are resting comfortably in recovery.
[2022-07-30] MEDS ORDERED: CITRIC ACID-SODIUM CITRATE 15 ML CUP PO ONE (21:10)
[2022-07-31] MEDS ORDERED: IBUPROFEN IV 800 MG in SODIUM CHLORIDE 0.9% 250 ML IV SCH (02:00)
[2022-07-31] MEDS: LACTATED RINGERS 1,000 ML IV SCH ×6 (03:10→05:56)
[2022-07-31] MEDS: SENNOSIDES-DOCUSATE SODIUM 1 EACH TAB PO SCH ×3 (03:10→21:32)
[2022-07-31] MEDS: ACETAMINOPHEN TAB 500 MG TAB PO SCH ×4 (03:11→18:35)
[2022-07-31] MEDS: ACETAMINOPHEN IV (For NPO) 1,000 MG in EMPTY BAG 1 BAG IVPB SCH ×2 (03:11→05:39)
[2022-07-31] MEDS: IBUPROFEN 600 MG TAB PO SCH ×4 (03:17→21:31)
[2022-07-31 05:22] LABS: Basophils % (A) 0 %; Eosinophils # (A) 0.1 k/uL (0-0.7); Eosinophils % (A) 1 %; HCT 32.8 % (34.0-46.0); HGB 10.9 gm/dL (11.4-16.0); Lymphocytes # (A) 1.8 k/uL (1.0-4.8); Lymphocytes % (A) 15 %; MCH 28.4 pg (25.0-35.0); MCHC 33.3 g/dL (31.0-37.0); MCV 85.4 fL (80.0-100.0); Mean Platelet Volume 10.4; Monocytes # (A) 0.8 k/uL (0-1.0); Monocytes % (A) 6 %; Neutrophils # (A) 9.3 k/uL (1.3-7.7); Neutrophils % (A) 77 %; Platelet Count 155 k/uL (150-450); RBC 3.84 m/uL (3.80-5.40); RDW 15.2 % (11.5-15.5); WBC 12.1 k/uL (3.8-10.6)
[2022-07-31 05:37] LABS: ALT 42 U/L (4-34); AST 38 U/L (14-36); African American GFR (CKD) >90 (>60 ml/min/1.73 sqM); Albumin 2.3 g/dL (3.5-5.0); Alkaline Phosphatase 151 U/L (38-126); Anion Gap 3 mmol/L; Blood Urea Nitrogen 8 mg/dL (7-17); Calcium 7.8 mg/dL (8.4-10.2); Carbon Dioxide 22 mmol/L (22-30); Chloride 109 mmol/L (98-107); Glucose 80 mg/dL (74-99); Non-African American GFR(CKD) >90 (>60 ml/min/1.73 sqM); Potassium 3.9 mmol/L (3.5-5.1); Sodium 134 mmol/L (137-145); Total Bilirubin 0.6 mg/dL (0.2-1.3); Total Protein 4.6 g/dL (6.3-8.2)
--- NOTE | 2022-07-31 09:09 | P.PN ---
Subjective Progress Note Date: 07/31/22 Principal diagnosis: Biliary colic Patient underwent last night. Today she is doing quite well. She is having mild right-sided back pain. She is tolerating diet. No nausea or vomiting. Labs show a improving liver enzymes. Objective - Vital Signs Vital signs: Vital Signs Temp 97.8 F 07/31/22 07:57 Pulse 69 07/31/22 07:57 Resp 16 07/31/22 07:57 BP 116/72 07/31/22 07:57 Pulse Ox 99 07/31/22 04:00 FiO2 Intake & Output 07/30/22 07/31/22 07/31/22 18:59 06:59 18:59 Intake Total 25.1 Output Total 1203 500 Balance -1177.9 -500 Intake: Intake, IV Titration 25.1 Amount Oxytocin 30 Units/500 ml 25.1 Ns 30 unit In Saline 1 500ml.bag @ Per Protocol IV .Q0M [facility] Rx#:[id number] Output: Urine 600 500 Uretheral (Oliveira) 300 Output, Quantitative 603 Blood Loss Other: Voiding Method Indwelling Catheter # Voids 1 0 1 - Exam Abdomen soft, mild distention, scar noted, no appreciable right upper quadrant tenderness - Labs CBC & Chem 7: 07/31/22 05:06 07/31/22 05:06 Labs: Abnormal Lab Results - Last 24 Hours (Table) 07/31/22 07/31/22 Range/Units 05:06 05:06 WBC 12.1 H (3.8-10.6) k/uL Hgb 10.9 L (11.4-16.0) gm/dL Hct 32.8 L (34.0-46.0) % Neutrophils # 9.3 H (1.3-7.7) k/uL Sodium 134 L (137-145) mmol/L Chloride 109 H (98-107) mmol/L Creatinine 0.50 L (0.52-1.04) mg/dL Calcium 7.8 L (8.4-10.2) mg/dL AST 38 H (14-36) U/L ALT 42 H (4-34) U/L Alkaline Phosphatase 151 H (38-126) U/L Total Protein 4.6 L (6.3-8.2) g/dL Albumin 2.3 L (3.5-5.0) g/dL Assessment and Plan (1) Biliary colic Narrative/Plan: Patient doing better at this time. Continue obstetric care. Continue low-fat diet. May discharge from our point of view. Follow-up in the office as outpatient. Current Visit: Yes Status: Acute Code(s): K80.50 - CALCULUS OF BILE DUCT W/O CHOLANGITIS OR CHOLECYST W/O OBST SNOMED Code(s): 61835437
--- NOTE | 2022-07-31 11:12 | P.PNOBGPC ---
Subjective - Subjective Patient reports: Reports appetite normal, Reports voiding normally, Reports pain well controlled, Reports ambulating normally : doing well Objective - Vital Signs Latest vital signs: Vital Signs Temp Pulse Resp BP Pulse Ox 07/31/22 07:57 97.8 F 69 16 116/72 07/31/22 04:00 98.1 F 78 16 110/70 99 07/30/22 23:58 98 F 74 16 128/82 99 07/30/22 23:16 98 F 74 16 128/82 99 07/30/22 22:46 81 16 124/70 98 07/30/22 22:16 85 16 129/60 98 07/30/22 22:01 98.2 F 75 16 107/55 100 07/30/22 21:46 82 16 102/55 100 07/30/22 21:31 90 16 117/60 100 07/30/22 21:16 97.2 F L 97 16 98/55 96 Intake and Output 07/30/22 07/31/22 07/31/22 22:59 06:59 14:59 Intake Total 25.1 Output Total 593 610 500 Balance -567.9 -610 -500 Intake: Intake, IV Titration 25.1 Amount Oxytocin 30 Units/500 ml 25.1 Ns 30 unit In Saline 1 500ml.bag @ Per Protocol IV .Q0M [facility] Rx#:[id number] Output: Urine 600 500 Uretheral (Oliveira) 300 Output, Quantitative 593 10 Blood Loss Other: Voiding Method Indwelling Catheter Indwelling Catheter # Voids 0 1 - Exam Extremities: Present: normal Abdomen: Present: normal appearance, soft. Absent: distention, tenderness Incision: Present: normal, dry, intact Uterus: Present: normal, firm (uterine fundus is tonic and appropriately tender just below the umbilicus.) - Labs Labs: Abnormal Lab Results - Last 24 Hours (Table) 07/31/22 07/31/22 Range/Units 05:06 05:06 WBC 12.1 H (3.8-10.6) k/uL Hgb 10.9 L (11.4-16.0) gm/dL Hct 32.8 L (34.0-46.0) % Neutrophils # 9.3 H (1.3-7.7) k/uL Sodium 134 L (137-145) mmol/L Chloride 109 H (98-107) mmol/L Creatinine 0.50 L (0.52-1.04) mg/dL Calcium 7.8 L (8.4-10.2) mg/dL AST 38 H (14-36) U/L ALT 42 H (4-34) U/L Alkaline Phosphatase 151 H (38-126) U/L Total Protein 4.6 L (6.3-8.2) g/dL Albumin 2.3 L (3.5-5.0) g/dL Assessment and Plan (1) Status post section Current Visit: Yes Status: Acute Code(s): Z98.891 - HISTORY OF UTERINE SCAR FROM PREVIOUS SURGERY SNOMED Code(s): 911370179 Plan: continue routine and postoperative care. Appreciate no from general surgery, patient will follow up as an outpatient for further evaluation of cholestasis/cholelithiasis. I have encouraged the patient to ambulate in the hallways routinely. Diet has been advanced to regular and the patient is tolerating it well. I would anticipate discharge home tomorrow pending no complications
--- NOTE | 2022-07-31 11:44 | P.PN ---
Progress Note - Text Progress Note Date: 07/31/22 Postoperative day 1 status post section under epidural anesthesia,, a nd epidural morphine given for postoperative analgesia, patient doing well, there is no anesthesia related complications, Patient had no headache, vital signs stable , Assessment and plan= postop day 1 status post , doing well there is no anesthesia related complication.
[2022-07-31 15:59] VITALS: TEMP 97.8
[2022-08-01 01:48] VITALS: RESP 16
[2022-08-01] MEDS: ACETAMINOPHEN TAB 500 MG TAB PO SCH ×2 (02:07→09:28)
[2022-08-01] MEDS: IBUPROFEN 600 MG TAB PO SCH ×2 (05:14→12:47)
[2022-08-01 09:14] VITALS: BP 132/82; PULSE 87
--- NOTE | 2022-08-01 11:02 | P.DS ---
Providers Date of admission: 07/30/22 08:11 Expected date of discharge: 08/01/22 Attending physician: Melanie Bills Consults: 07/30/22 06:00 Consult Physician Routine Consulting Provider: Herber Allan Consult Reason/Comments: Gallstones Do you want consulting provider notified?: Yes, Notify in am Primary care physician: Stated None - Discharge Diagnosis(es) (1) Status post section Current Visit: Yes Status: Acute Hospital Course: the patient is a 27-year-old 1 para 0 admitted at 39-0/7 weeks with complaints of severe right upper quadrant pain. The onset of the pain came after a full meal and has been no throughout the to have similar pain thought to be secondary to cholestasis or cholelithiasis. She had an ultrasound performed in triage which demonstrated findings consistent with acute cholecystitis. Her had been otherwise uncomplicated. She was admitted for management of the cholecystitis and the decision was made to expedite delivery. She had Pitocin augmentation started and underwent artificial rupture of membranes. Throughout the day, she had multiple episodes of nonreassuring heart rate status, category 2 heart rate tracing causing Pitocin to be discontinued. As she was remote from delivery and continue to have concerns regarding well-being, decision was made to proceed with primary low-transverse section. She was taken the operating room where she was delivered of a viable 7 lbs. 14 oz. baby boy with Apgars of 8 at 1 minute and 9 at 5 minutes. Her and postoperative courses were entirely unremarkable with vital signs being stable and her temperature was afebrile throughout. She was seen by general surgery in consultation who felt that her symptoms could be temporized to an outpatient setting. She therefore was discharged home on and postoperative day #2 to follow-up in our office in 2 weeks as well as with the general surgery within the next 2 weeks. She is additionally to follow-up in our office in 6 weeks' time routinely. Discharge instructions included calling for any significantly increased bleeding or foul-smelling lochia, significantly increased fever abdominal pain, perineal complaints, breast complaints, incisional complaints, or anything else that concerned her. She was additionally instructed to have nothing in the vagina for at least 6 weeks time to include intercourse and to abstain from any heavy lifting over the same period of time. She was last instructed to do no driving until off of all pain medications or 2 weeks' time, whichever came first. She understood her instructions and agrees to follow up as noted above. Discharge medications included continued vitamins as she has opted to breast- feed. She was additionally to use [id number] analgesic pain medications as needed. She was provided with a prescription for Libby 5/325 mg, 1-2 by mouth every 6 hours when necessary pain, #20 dispensed with no refills. Maternal blood type is O+ and rubella status is immune. Discharge hemoglobin and hematocrit were 10.9 and 32.8 respectively. Procedures: #1. Pitocin induction #2. Artificial rupture of membranes #3. Epidural analgesia #4. Primary low-transverse section #5. Gen. surgery consultation Patient Condition at Discharge: Stable Plan - Discharge Summary New Discharge Prescriptions: No Action Aspirin [Children's Aspirin] 81 mg PO DAILY Acetaminophen [Tylenol] 325 mg PO Q4-6H PRN PRN Reason: Pain Vit No.179/Iron/Folic [ Tablet] 1 each PO DAILY Discharge Medication List Aspirin [Children's Aspirin] 81 mg PO DAILY 03/04/22 [History] Vit No.179/Iron/Folic [ Tablet] 1 each PO DAILY 07/11/22 [History] Acetaminophen [Tylenol] 325 mg PO Q4-6H PRN 07/15/22 [History] Follow up Appointment(s)/Referral(s): Herber Allan MD [Medical Doctor] - 4 Weeks Melanie Bills DO [Doctor of Osteopathic Medicine] - 2 Weeks Discharge Disposition: HOME SELF-CARE
== END 2022-08-01 13:27 | disposition home or self-care (01) | DRG 787 ==
LOC: FBPOP 20:34 → 4FBP 22:38 → OBSVTOIN 07-30 08:11 → 4FBP 07-30 08:21
PROVIDERS: ADMIT Obstetrics & Gynecology; ATTEND Obstetrics & Gynecology Obstetrics
PROC: 10907ZC Drainage of Amniotic Fluid, Therapeutic from Products of Conception, Via Natural or Artificial Opening (ICD-10-PCS; 2022-07-30)
PROC: 4A0HXCZ Measurement of Products of Conception, Cardiac Rate, External Approach (ICD-10-PCS; 2022-07-30)
PROC: 3E033VJ Introduction of Other Hormone into Peripheral Vein, Percutaneous Approach (ICD-10-PCS; 2022-07-30)
PROC: 10D00Z1 Extraction of Products of Conception, Low, Open Approach (ICD-10-PCS; principal; 2022-07-30 20:18)
DX: O76 Abnormality in fetal heart rate and rhythm complicating labor and delivery (principal); K80.00 Calculus of gallbladder with acute cholecystitis without obstruction; O26.62 Liver and biliary tract disorders in childbirth; N13.30 Unspecified hydronephrosis; O62.0 Primary inadequate contractions; O34.83 Maternal care for other abnormalities of pelvic organs, third trimester; N83.00 Follicular cyst of ovary, unspecified side; O99.892 Other specified diseases and conditions complicating childbirth; Z37.0 Single live birth; Z3A.39 39 weeks gestation of pregnancy; Z79.82 Long term (current) use of aspirin
CPT/HCPCS: 36415; 59025; 76705; 80053; 82150; 83690; 85025; 86850; 86900; 86901; 96361; 96365; 99213

== ENCOUNTER 2022-09-23 20:16 | Observation (INO) | payer BC, OTHER ==
[2022-09-23] MEDS ORDERED: SODIUM CHLORIDE 0.9% 1,000 ML IV STA (20:35)
[2022-09-23] MEDS ORDERED: KETOROLAC 15 MG/ML 1 ML VIAL IVP STA (20:35)
--- NOTE | 2022-09-23 20:40 | ED ---
Abdominal Pain HPI - General Chief Complaint: Abdominal Pain Stated Complaint: abd pain Time Seen by Provider: 09/23/22 20:29 Source: patient, RN notes reviewed Mode of arrival: ambulatory Limitations: no limitations - History of Present Illness Initial Comments: This is a 27-year-old female who presents to the emergency department for abdominal pain. Patient states that she had an appointment with Dr. Allan this week and is scheduled to have her gallbladder removed on 10/18. However, over the last couple of days her pain has increased and she does not believe that she can wait until then. She has not been eating anything due to fear of it causing a flareup. Denies any nausea or vomiting. Also denies any changes in bowel habits, fevers, or chills. She is taking ibuprofen and the [place] she was prescribed with only minor relief in symptoms. Denies any fevers, chills, sore throat, cough, dyspnea, chest pain, palpitations, nausea, vomiting, diarrhea, back pain, or headaches. MD Complaint: abdominal pain Location: RUQ - Related Data Home Medications Medication Instructions Recorded Confirmed HYDROcodone/APAP 5-325MG [[place] 1 - 2 tab PO Q6H PRN 09/23/22 09/23/22 5-325] Ibuprofen [Motrin Ib] 600 mg PO Q8H PRN 09/23/22 09/23/22 Allergies Allergy/AdvReac Type Severity Reaction Status Date / Time No Known Allergies Allergy Verified 09/23/22 20:28 Review of Systems ROS Statement: Those systems with pertinent positive or pertinent negative responses have been documented in the HPI. ROS Other: All systems not noted in ROS Statement are negative. Past Medical History Past Medical History: No Reported History History of Any Multi-Drug Resistant Organisms: None Reported Past Surgical History: Section Smoking Status: Never smoker Past Alcohol Use History: None Reported Past Drug Use History: None Reported General Exam Limitations: no limitations General appearance: alert, in no apparent distress Head exam: Present: atraumatic, normocephalic, normal inspection Respiratory exam: Present: normal lung sounds bilaterally. Absent: respiratory distress, wheezes, rales, rhonchi, stridor Cardiovascular Exam: Present: regular rate, normal rhythm, normal heart sounds. Absent: systolic murmur, diastolic murmur, rubs, gallop, clicks GI/Abdominal exam: Present: soft, tenderness (RUQ), normal bowel sounds. Absent: distended Neurological exam: Present: alert, oriented X3, CN II-XII intact Psychiatric exam: Present: normal affect, normal mood Skin exam: Present: warm, dry, intact, normal color. Absent: rash Course Vital Signs 09/23/22 09/23/22 20:25 23:04 Temperature 97.6 F Pulse Rate 76 62 Respiratory 16 18 Rate Blood Pressure 136/81 128/90 O2 Sat by Pulse 99 97 Oximetry Medical Decision Making - Medical Decision Making This is a 27-year-old female who presents to the emergency department for abdominal pain. Was pt. sent in by a medical professional or institution? @ -No Did you speak to anyone other than the patient for history? @ -No Did you review nursing and triage notes? @ -Yes, and I agree, it is accurate with regards to the patient's symptoms. Were old charts reviewed? @ -Gallbladder ultrasound from 07/29/22 revealing cholelithiasis Differential Diagnosis? @ -Differential Abdominal Pain Women: Appendicitis, Cholecystitis, diverticulosis, ischemic bowel, pancreatitis, hepatitis, UTI, gastroenteritis, AAA, incarcerated hernia, bowel obstruction, constipation, inflammatory bowel, hepatitis, peptic ulcer disease, splenic infarction, perforated viscus, vulvitis, ovarian torsion, PID, kidney stone, placenta abruption, this is not meant to be an all-inclusive list EKG interpreted by me (3pts min.)? @ -Not obtained X-rays interpreted by me (1pt min.)? @ -Not obtained CT interpreted by me (1pt min.)? @ -Not obtained U/S interpreted by me (1pt. min.)? @ -Gallbladder ultrasound obtained. My interpretation identifies cholelithiasis and biliary sludge. What testing was considered but not performed? (CT, X-rays, U/S, labs)? Why? @ -None What meds were considered but not given? Why? @ -None Did you discuss the management of the patient with other professionals? @ -Yes, Dr. Allan who agrees to admit the patient. Did you reconcile home meds? @ -No Was smoking cessation discussed for >3mins.? @ -No Was critical care preformed (if so, how long)? @ -No Were there social determinants of health that impacted care today? How? (Homelessness, low income, unemployed, alcoholism, drug addiction, transportation, low edu. Level, literacy, decrease access to med. care, halfway, rehab)? @ -No Was there de-escalation of care discussed even if they declined? (Discuss DNR or withdrawal of care, Hospice)? @ -No What co-morbidities impacted this encounter? (DM, HTN, Smoking, COPD, CAD, Cancer, CVA, Hep., AIDS, mental health diagnosis, sleep apnea, morbid obesity)? @ -Obesity Was patient admitted / discharged? @ -Admitted. Lab work obtained revealing mildly elevated liver enzymes. However, these are similar when compared to prior values. Gallbladder ultrasound obtained revealing a mildly dilated gallbladder with gallstones and biliary sludge. She had a positive sonographic Morataya's sign. Findings equivocal for acute cholecystitis. She had minor improvement in symptoms with Toradol, however she continued to be very uncomfortable. Case discussed with Dr. Allan, who is agreeable to admitting the patient. He ordered a computed tomography scan with oral contrast for further evaluation. He advised that he will put her on the schedule tomorrow for possible surgical intervention, however it is undetermined whether or not surgery will take place tomorrow. He will evaluate the patient and computed tomography scan findings first. This was discussed with the patient is agreeable with this. NPO diet ordered in the event surgery does take place. Undiagnosed new problem with uncertain prognosis? @ -None Drug Therapy requiring intensive monitoring for toxicity (Heparin, Nitro, Insulin, Cardizem)? @ -None Were any procedures done? @ -None Diagnosis/symptom? @ -Cholelithiasis Acute, or Chronic, or Acute on Chronic? @ -Chronic Uncomplicated (without systemic symptoms) or Complicated (systemic symptoms)? @ -Complicated Side effects of treatment? @ -None Exacerbation, Progression, or Severe Exacerbation] @ -Progression Poses a threat to life or bodily function? @ -Yes This case was discussed in detail with the attending ED physician, Dr. Knutson. Presentation, findings, and treatment plan discussed in detail as well. - Lab Data Result diagrams: 09/23/22 20:35 09/23/22 20:35 Lab Results 09/23/22 09/23/22 09/23/22 Range/Units 20:35 20:35 20:35 WBC 8.9 (3.8-10.6) k/uL RBC 5.11 (3.80-5.40) m/uL Hgb 13.7 (11.4-16.0) gm/dL Hct 42.5 (34.0-46.0) % MCV 83.1 (80.0-100.0) fL MCH 26.8 (25.0-35.0) pg MCHC 32.3 (31.0-37.0) g/dL RDW 14.6 (11.5-15.5) % Plt Count 239 (150-450) k/uL MPV 8.3 Neutrophils % 77 % Lymphocytes % 16 % Monocytes % 4 % Eosinophils % 2 % Basophils % 0 % Neutrophils # 6.9 (1.3-7.7) k/uL Lymphocytes # 1.4 (1.0-4.8) k/uL Monocytes # 0.4 (0-1.0) k/uL Eosinophils # 0.1 (0-0.7) k/uL Basophils # 0.0 (0-0.2) k/uL Sodium 138 (137-145) mmol/L Potassium 4.0 (3.5-5.1) mmol/L Chloride 104 (98-107) mmol/L Carbon Dioxide 22 (22-30) mmol/L Anion Gap 12 mmol/L BUN 16 (7-17) mg/dL Creatinine 0.58 (0.52-1.04) mg/dL Est GFR (CKD-EPI)AfAm >90 (>60 ml/min/1.73 sqM) Est GFR (CKD-EPI)NonAf >90 (>60 ml/min/1.73 sqM) Glucose 105 H (74-99) mg/dL Plasma Lactic Acid Michael 0.9 (0.7-2.0) mmol/L Calcium 9.5 (8.4-10.2) mg/dL Total Bilirubin 0.6 (0.2-1.3) mg/dL AST 31 (14-36) U/L ALT 55 H (4-34) U/L Alkaline Phosphatase 153 H (38-126) U/L Total Protein 7.5 (6.3-8.2) g/dL Albumin 4.5 (3.5-5.0) g/dL Amylase 47 (30-110) U/L Lipase 67 (23-300) U/L - Radiology Data Radiology results: report reviewed, image reviewed Disposition Clinical Impression: Cholelithiasis Disposition: ADMITTED IP TO THIS HOSP
[2022-09-23 20:47] LABS: Basophils % (A) 0 %; Eosinophils # (A) 0.1 k/uL (0-0.7); Eosinophils % (A) 2 %; HCT 42.5 % (34.0-46.0); HGB 13.7 gm/dL (11.4-16.0); Lymphocytes # (A) 1.4 k/uL (1.0-4.8); Lymphocytes % (A) 16 %; MCH 26.8 pg (25.0-35.0); MCHC 32.3 g/dL (31.0-37.0); MCV 83.1 fL (80.0-100.0); Mean Platelet Volume 8.3; Monocytes # (A) 0.4 k/uL (0-1.0); Monocytes % (A) 4 %; Neutrophils # (A) 6.9 k/uL (1.3-7.7); Neutrophils % (A) 77 %; Platelet Count 239 k/uL (150-450); RBC 5.11 m/uL (3.80-5.40); RDW 14.6 % (11.5-15.5); WBC 8.9 k/uL (3.8-10.6)
[2022-09-23 21:02] LABS: ALT 55 U/L (4-34); AST 31 U/L (14-36); African American GFR (CKD) >90 (>60 ml/min/1.73 sqM); Albumin 4.5 g/dL (3.5-5.0); Alkaline Phosphatase 153 U/L (38-126); Amylase 47 U/L (30-110); Anion Gap 12 mmol/L; Blood Urea Nitrogen 16 mg/dL (7-17); Calcium 9.5 mg/dL (8.4-10.2); Carbon Dioxide 22 mmol/L (22-30); Chloride 104 mmol/L (98-107); Glucose 105 mg/dL (74-99); Lipase 67 U/L (23-300); Non-African American GFR(CKD) >90 (>60 ml/min/1.73 sqM); Sodium 138 mmol/L (137-145); Total Bilirubin 0.6 mg/dL (0.2-1.3); Total Protein 7.5 g/dL (6.3-8.2)
--- NOTE | 2022-09-23 21:23 | US ---
EXAMINATION TYPE: US gallbladder DATE OF EXAM: 09/23/2022 COMPARISON: 08/18/22 CLINICAL INDICATION: Female, 27 years old with history of RUQ pain, known gallstones; RUQ and epigast george pain. Known gallstones. Pt states she has an appt to get her gb removed later in September TECHNIQUE: Multiple sonographic images of the right upper quadrant are obtained. FINDINGS: EXAM MEASUREMENTS: Liver Length: 16.7 cm Gallbladder Wall: 0.23 cm CBD: 0.57 cm Right Kidney: 12.0 x 4.3 x 5.3 cm DISPERSION MIXER NOTES: Pancreas: Parts visualized appear wnl Liver: wnl Gallbladder: Gallstones and sludge seen in fundus. Hydropic Evidence for sonographic Morataya's sign: Yes CBD: wnl Right Kidney: Dilated renal pelvis Visualized portions unremarkable. The liver is unremarkable without focal lesion. Gallbladder sludge and stones within the mildly distended gallbladder. Per petroleum engineering professor, positive sonographic Morataya sign . No wall thickening or pericholecystic fluid identified. Common bile duct at the upper limits of nor mal. Prominent right extra renal pelvis. IMPRESSION: Mildly distended gallbladder with gallstones and sludge. Per petroleum engineering professor positive sonographic Morataya' s sign however there is no wall thickening or pericholecystic fluid. Findings are equivocal for acute cholecystitis. Consider further evaluation with nuclear medicine HIDA scan.
[2022-09-23] MEDS ORDERED: IOPAMIDOL CONTRAST (ORAL USE) VIAL PO PRN (22:32)
[2022-09-23] MEDS ORDERED: NALOXONE 0.4 MG/ML 1 ML VIAL IV PRN (22:40)
[2022-09-23] MEDS ORDERED: HYDROmorphone 0.5 MG/0.5 ML SYRINGE IVP PRN (22:40)
[2022-09-23] MEDS ORDERED: HYDROmorphone 1 MG/ML 1 ML SYRINGE IVP PRN (22:40)
[2022-09-23] MEDS ORDERED: ONDANSETRON 4 MG/2 ML VIAL IVP PRN (22:40)
--- NOTE | 2022-09-24 00:54 | CT ---
EXAM: CT Abdomen and Pelvis With Intravenous Contrast CLINICAL HISTORY: ITS.REASON CT Reason: Upper abdominal pain TECHNIQUE: Axial computed tomography images of the abdomen and pelvis with intravenous contrast. CTDI is 27.7 mGy and DLP is 1390.9 mGy-cm. This CT exam was performed using one or more of the following dose reduction techniques: automated exposure control, adjustment of the mA and/or kV according to patient size, and/or use of iterative reconstruction technique. COMPARISON: 01/22/21 FINDINGS: Lung bases: Unremarkable. No mass. No consolidation. ABDOMEN: Liver: Unremarkable. No mass. Gallbladder and bile ducts: Mild nonspecific gallbladder wall thickening. No biliary dilatation. No calcified stones. Pancreas: Unremarkable. No mass. No ductal dilation. Spleen: Unremarkable. No splenomegaly. Adrenals: Unremarkable. No mass. Kidneys and ureters: Simple right kidney cyst measuring 12 mm; no further follow-up required. No solid mass. No hydronephrosis. Stomach and bowel: Oral contrast administered. No bowel obstruction. No mucosal thickening. PELVIS: Appendix: Normal appendix. Bladder: Unremarkable. No mass. Reproductive: Fat-containing right adnexal lesion measuring 3.3 cm, similar to prior. Fat-containing left adnexal lesion measuring 4.2 cm, new from prior. Appearance is consistent with bilateral ovarian dermoids (mature teratomas). ABDOMEN and PELVIS: Intraperitoneal space: Unremarkable. No free air. No significant fluid collection. Bones/joints: No acute fracture. No dislocation. Soft tissues: Unremarkable. Vasculature: Unremarkable. No abdominal aortic aneurysm. Lymph nodes: Unremarkable. No enlarged lymph nodes. IMPRESSION: 1. Nonspecific gallbladder wall thickening, correlate clinically for cholecystitis and consider ultrasound. 2. Fat-containing right adnexal lesion measuring 3.3 cm, similar to prior. Fat-containing left adnexal lesion measuring 4.2 cm, new from prior. Appearance is consistent with bilateral ovarian dermoids (mature teratomas). Further follow-up and management at the discretion of DIRECTOR OF ACADEMIC.
[2022-09-24] MEDS: ACETAMINOPHEN TAB 325 MG TAB PO PRN ×2 (01:15→06:16)
[2022-09-24 11:09] LABS: ALT 41 U/L (4-34); AST 25 U/L (14-36); African American GFR (CKD) >90 (>60 ml/min/1.73 sqM); Albumin 3.8 g/dL (3.5-5.0); Albumin/Globulin Ratio 1.5; Alkaline Phosphatase 122 U/L (38-126); Anion Gap 8 mmol/L; Blood Urea Nitrogen 11 mg/dL (7-17); Calcium 8.6 mg/dL (8.4-10.2); Carbon Dioxide 23 mmol/L (22-30); Chloride 108 mmol/L (98-107); Globulin 2.6 g/dL; Glucose 88 mg/dL (74-99); Non-African American GFR(CKD) >90 (>60 ml/min/1.73 sqM); Potassium 4.5 mmol/L (3.5-5.1); Sodium 139 mmol/L (137-145); Total Bilirubin 0.8 mg/dL (0.2-1.3); Total Protein 6.4 g/dL (6.3-8.2)
--- NOTE | 2022-09-24 11:27 | P.GSHP ---
History of Present Illness H&P Date: 09/24/22 CHIEF COMPLAINT: Abdominal pain HISTORY OF PRESENT ILLNESS: This is a 27-year-old female who presented to the hospital with complaints of right upper quadrant abdominal pain 2 months. She initially had laparoscopic cholecystectomy scheduled outpatient on October [address] Allan. However patient's pain has increased and she felt that she would not be up to make it until date therefore she came into the ER. She describes the right upper quadrant pain as sharp and radiates to her back on the right side. She denies any nausea or vomiting but does report decreased appetite. Denies any fever chills or sweats. She did have a 8 weeks ago. She is afebrile. Gallbladder ultrasound had shown a mildly distended gallbladder with gallstones and sludge. She did have a positive [place]aya's. Computed tomography scan had shown nonspecific gallbladder wall thickening. PAST MEDICAL HISTORY: See below PAST SURGICAL HISTORY: See below MEDICATIONS: See below ALLERGIES: See below SOCIAL HISTORY: No illicit drug use. REVIEW OF SYSTEMS: CONSTITUTIONAL: Denies fever or chills. HEENT: Denies blurred vision, vision changes, or eye pain. Denies hemoptysis CARDIOVASCULAR: Denies chest pain or pressure. RESPIRATORY: No shortness of breath. GASTROINTESTINAL: See HPI for pertinent findings HEMATOLOGIC: Denies bleeding disorders. GENITOURINARY: Denies any blood in urine or increased urinary frequency. SKIN: Denies pruitis. Denies rash. PHYSICAL EXAM: VITAL SIGNS: Reviewed GENERAL: Well-developed in no acute distress. HEENT: No sclera icterus. Extraocular movements grossly intact. Moist buccal mucosa. Head is atraumatic, normocephalic. No nasal drainage. ABDOMEN: Soft. Nondistended. Tenderness to palpation right upper quadrant NEUROLOGIC: Alert and oriented. Cranial nerves II through XII grossly intact. LABORATORY DATA: WBC is 8.9 Hgb 13.7 platelets 239 Sodium is 139 potassium 4.5 creatinine 0.61 lactic Acid 0.9 AST is 25 ALT 55 down to 41 alk phos 153 down to 122 lipase 67 urine hCG not detected IMAGING: Ultrasound shows mildly distended gallbladder with gallstones and sludge. Positive [place] sign. There is no wall thickening or pericholecystic fluid. Findings are equivocal for acute cholecystitis Computed tomography scan abdomen and pelvis nonspecific gallbladder wall thickening, correlate clinically for cholecystitis. Fat-containing right adnexal lesion measuring 3.3 cm similar to prior. Fat-containing left adnexal lesion measuring 4.2 cm new from prior. 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 ASSESSMENT: 1. Acute cholecystitis with ultrasound showing mildly distended gallbladder with gallstones and sludge and positive [place] sign PLAN: -Patient tentatively scheduled for laparoscopic cholecystectomy today. Further recommendations forthcoming per surgeon -Keep patient nothing by mouth -IV antibiotics started -Start IV fluids -Continue pain management Physician Advertising Dispatch Clerks Supervisor note has been reviewed by physician. Signing provider agrees with the documented findings, assessment, and plan of care. I have personally seen and examined the patient, reviewed the BUS WASHER /PAs history, exam and MDM and agree with the assessment and plan as written. Based on total visit time, I have performed more than 50% of the visit. As above: Patient was seen in the office earlier this week. Patient with increasing right upper quadrant pain. This most recent episode did not resolve at home and for that reason she came to the hospital. CAT scan and ultrasound reviewed and appears consistent with acute calculus cholecystitis. Today's liver enzymes improved. Options discussed with patient. We'll proceed with laparoscopic, possible open cholecystectomy at this time. Risks of bleeding, infection, bile leak, bile duct injury, retained common bile duct stone, trocar injury, conversion to an open procedure, hernia, anesthesia related complications were reviewed. The patient understands and wishes to proceed. Past Medical History Past Medical History: No Reported History History of Any Multi-Drug Resistant Organisms: None Reported Past Surgical History: Section Smoking Status: Never smoker Past Alcohol Use History: None Reported Past Drug Use History: None Reported Medications and Allergies Home Medications Medication Instructions Recorded Confirmed Type HYDROcodone/APAP 5-325MG [[place] 1 - 2 tab PO Q6H PRN 09/23/22 09/23/22 History 5-325] Ibuprofen [Motrin Ib] 600 mg PO Q8H PRN 09/23/22 09/23/22 History Allergies Allergy/AdvReac Type Severity Reaction Status Date / Time No Known Allergies Allergy Verified 09/23/22 20:28 Surgical - Exam Vital Signs Temp Pulse Resp BP Pulse Ox 97.6 F 76 16 136/81 99 09/23/22 20:25 09/23/22 20:25 09/23/22 20:25 09/23/22 20:25 09/23/22 20:25 Results - Labs 09/23/22 20:35 09/24/22 10:36 Abnormal Lab Results - Last 24 Hours (Table) 09/23/22 09/24/22 Range/Units 20:35 10:36 Chloride 108 H (98-107) mmol/L Glucose 105 H (74-99) mg/dL ALT 55 H 41 H (4-34) U/L Alkaline Phosphatase 153 H (38-126) U/L Diabetes panel 09/23/22 09/24/22 Range/Units 20:35 10:36 Sodium 138 139 (137-145) mmol/L Potassium 4.0 4.5 (3.5-5.1) mmol/L Chloride 104 108 H (98-107) mmol/L Carbon Dioxide 22 23 (22-30) mmol/L BUN 16 11 (7-17) mg/dL Creatinine 0.58 0.61 (0.52-1.04) mg/dL Glucose 105 H 88 (74-99) mg/dL Calcium 9.5 8.6 (8.4-10.2) mg/dL AST 31 25 (14-36) U/L ALT 55 H 41 H (4-34) U/L Alkaline Phosphatase 153 H 122 (38-126) U/L Total Protein 7.5 6.4 (6.3-8.2) g/dL Albumin 4.5 3.8 (3.5-5.0) g/dL Calcium panel 09/23/22 09/24/22 Range/Units 20:35 10:36 Calcium 9.5 8.6 (8.4-10.2) mg/dL Albumin 4.5 3.8 (3.5-5.0) g/dL Pituitary panel 09/23/22 09/24/22 Range/Units 20:35 10:36 Sodium 138 139 (137-145) mmol/L Potassium 4.0 4.5 (3.5-5.1) mmol/L Chloride 104 108 H (98-107) mmol/L Carbon Dioxide 22 23 (22-30) mmol/L BUN 16 11 (7-17) mg/dL Creatinine 0.58 0.61 (0.52-1.04) mg/dL Glucose 105 H 88 (74-99) mg/dL Calcium 9.5 8.6 (8.4-10.2) mg/dL Adrenal panel 09/23/22 09/24/22 Range/Units 20:35 10:36 Sodium 138 139 (137-145) mmol/L Potassium 4.0 4.5 (3.5-5.1) mmol/L Chloride 104 108 H (98-107) mmol/L Carbon Dioxide 22 23 (22-30) mmol/L BUN 16 11 (7-17) mg/dL Creatinine 0.58 0.61 (0.52-1.04) mg/dL Glucose 105 H 88 (74-99) mg/dL Calcium 9.5 8.6 (8.4-10.2) mg/dL Total Bilirubin 0.6 0.8 (0.2-1.3) mg/dL AST 31 25 (14-36) U/L ALT 55 H 41 H (4-34) U/L Alkaline Phosphatase 153 H 122 (38-126) U/L Total Protein 7.5 6.4 (6.3-8.2) g/dL Albumin 4.5 3.8 (3.5-5.0) g/dL
[2022-09-24] MEDS: PIPERACILLIN-TAZOBACTAM 3.375 GM in SODIUM CHLORIDE 0.9% 100 ML IVPB SCH ×2 (11:36→19:57)
[2022-09-24] MEDS: SODIUM CHLORIDE 0.9% 1,000 ML IV SCH ×2 (11:36→19:57)
[2022-09-24] MEDS ORDERED: HEPARIN SODIUM,PORCINE/PF 5,000 UNIT/0.5 ML SYRINGE SQ ONE (13:32)
[2022-09-24] MEDS ORDERED: IV FLUID CONTINUATION 1,000 ML IV ONE (14:06)
[2022-09-24] MEDS ORDERED: ONDANSETRON 4 MG/2 ML VIAL IVP ONE (14:07)
[2022-09-24] MEDS ORDERED: HEPARIN SODIUM,PORCINE 5,000 UNIT/ML 1 ML VIAL SQ ONE (14:07)
[2022-09-24] MEDS ORDERED: DEXAMETHASONE SOD PHOSPHATE 4 MG/ML 1 ML VIAL IVP ONE (14:07)
[2022-09-24] MEDS ORDERED: PROPOFOL 10 MG/ML 20 ML VIAL IV ONE (14:42)
[2022-09-24] MEDS ORDERED: MIDAZOLAM 2 MG/2 ML VIAL ONE (14:42)
[2022-09-24] MEDS ORDERED: LIDOCAINE 2% INJ 20 MG/ML (2 ML VIAL) ONE (14:42)
[2022-09-24] MEDS ORDERED: HYDROmorphone (PF) 1 MG/ML ONE (14:42)
[2022-09-24] MEDS ORDERED: ROCURONIUM 10 MG/ML (5 ML VIAL) IV ONE (14:42)
[2022-09-24] MEDS ORDERED: NEOSTIGMINE 1 MG/ML 10 ML VIAL ONE (14:42)
[2022-09-24] MEDS ORDERED: KETOROLAC 15 MG/ML 1 ML VIAL ONE (14:42)
[2022-09-24] MEDS ORDERED: GLYCOPYRROLATE 0.2 MG/ML 2 ML VIAL ONE (14:42)
[2022-09-24] MEDS ORDERED: fentaNYL (PF) 50 MCG/ML 2 ML AMP ONE (14:42)
[2022-09-24] MEDS ORDERED: SUCCINYLCHOLINE CHLORIDE 200 MG/10 ML VIAL IV ONE (14:42)
[2022-09-24] MEDS ORDERED: BUPIVACAINE (PF) 0.25% 30 ML VIAL SQ ONE (14:49)
[2022-09-24] MEDS ORDERED: LACTATED RINGERS 1,000 ML IV ONE (15:43)
[2022-09-24] MEDS ORDERED: HYDROcodone/APAP 5-325MG 1 EACH TAB PO PRN (15:48)
--- NOTE | 2022-09-24 15:49 | P.OP ---
Date of Procedure: 09/24/22 Procedure(s) Performed: PREOPERATIVE DIAGNOSIS: Acute calculus cholecystitis POSTOPERATIVE DIAGNOSIS: Acute calculus cholecystitis with hydrops PROCEDURE: Laparoscopic cholecystectomy SURGEON: Sanjana EBL: Minimal see anesthesia record ANESTHESIA: Gen. COMPLICATIONS: None OPERATIVE PROCEDURE: The patient was brought and placed on the operating room table in the supine position. The patient was placed under general anesthesia at that time. The abdomen was prepped and draped in the usual sterile fashion. A small vertical infraumbilical incision was made. The fascia was grasped with the Blayne forceps. The fascia was retracted anteriorly. The Veress needle was advanced into the peritoneal cavity. The saline drop test was normal. Insufflation took place up to 15 mmHg. A 5 mm optical trocar was advanced and the peritoneal cavity. 2 additional 5 mm trochars were placed in the right upper quadrant under direct visualization. A 12 mm trocar was advanced into the epigastric incision site. The gallbladder was acutely inflamed. It was edematous and erythematous. It was very tense. A small opening was made and clear fluid was evacuated. The gallbladder was retracted superiorly and laterally. The peritoneum overlying the infundibulum was bluntly dissected. The patient's cystic duct was visualized. The junction between the cystic duct common and hepatic duct was identified. The critical view of safety was achieved after blunt dissection. The cystic duct was then divided after pl acement of 3 12 mm clips on the patient's side and one on the specimen side. The cystic artery was identified and clipped as well. A small vessel was seen along the gallbladder fossa and clipped as well. The gallbladder was then removed from the liver bed using electrocautery. The gallbladder was then removed from the epigastric trocar site with an Endo Catch bag. The gallbladder fossa was irrigated with saline. There was no evidence of any bleeding or biliary drainage seen. The fascia at the 12 millimeter site was closed using a Kole-Wanda 0 Vicryl stitch. The trochars were then removed. The skin at all 4 sites was closed using a 4-0 Monocryl stitch. Skin glue was utilized on the incision sites. At the end of this procedure the sponge and needle counts were correct. DISPOSITION: Stable to the recovery room
[2022-09-25] MEDS: PIPERACILLIN-TAZOBACTAM 3.375 GM in SODIUM CHLORIDE 0.9% 100 ML IVPB SCH ×2 (04:15→11:42)
[2022-09-25 08:21] VITALS: RESP 15
[2022-09-25] MEDS: SODIUM CHLORIDE 0.9% 1,000 ML IV SCH (11:43)
[2022-09-25 14:13] VITALS: BP 134/79; PULSE 71; TEMP 97.9
--- NOTE | 2022-09-25 15:20 | P.DS ---
Providers Date of admission: 09/23/22 22:54 Expected date of discharge: 09/25/22 Attending physician: Herber Allan Primary care physician: Sanju Tyrone [facility] Hospital Course: CHIEF COMPLAINT: Hydrops cholecystitis HISTORY OF PRESENT ILLNESS: The patient is a 27-year-old female status post laparoscopic cholecystectomy for hydrops cholecystitis. She feels well. She has appropriate soreness. She is dumping her breast milk while in the hospital. ROS: No reports of nausea and vomiting. No fevers or chills. No new chest pain. No productive sputum PHYSICAL EXAM: VITAL SIGNS: Reviewed CONSTITUTIONAL: Well developed and in no acute distress. EYES: Conjuctivae without sclera icterus. Extraocular movements grossly intact. HEAD, EARS, NOSE, THROAT: Moist buccal mucosa. Head is atraumatic, normocephalic. Hears conversational speech. No nasal drainage. RESPIRATORY: Non-labored respirations and equal bilateral excursions. CARDIOVASCULAR: Palpable 2+ radial pulses. ABDOMEN: Incisions clean dry and intact. MUSCULOSKELETAL: No gross deformity of the lower extremities noted. No clubbing. No cyanosis. SKIN: Good skin turgor. Well perfused. NEUROLOGIC: Cranial nerves II through XII grossly intact. No focal or lateralizing signs. PSYCH: Appropriate affect. Alert and oriented to person, place and time. CLINICAL LABS: Reviewed. No new labs ASSESSMENT: 1. Hydrops acute cholecystitis PLAN: 1. Nonnarcotic pain management reviewed as she is breast feeding. 2. Questions addressed. 3. Stable for discharge. 4. Follow up with Dr Allan per recommendations. Vital Signs Temp 97.9 F 09/25/22 14:12 Pulse 71 09/25/22 14:12 Resp 15 09/25/22 14:12 BP 134/79 09/25/22 14:12 Pulse Ox 97 09/25/22 14:12 FiO2 Intake & Output 09/25/22 09/25/22 09/26/22 06:59 18:59 06:59 Intake Total 820 Balance 820 Intake: Oral 820 Other: # Voids 3 2 Patient Condition at Discharge: Good Plan - Discharge Summary New Discharge Prescriptions: New Acetaminophen Tab [Tylenol Tab] 1,000 mg PO Q6HR PRN #30 tablet PRN Reason: Pain Ibuprofen [Motrin] 600 mg PO Q8HR PRN #30 tab PRN Reason: Pain Continue Ibuprofen [Motrin Ib] 600 mg PO Q8H PRN PRN Reason: Pain HYDROcodone/APAP 5-325MG [[place] 5-325] 1 - 2 tab PO Q6H PRN PRN Reason: Pain Discharge Medication List HYDROcodone/APAP 5-325MG [[place] 5-325] 1 - 2 tab PO Q6H PRN 09/23/22 [History] Ibuprofen [Motrin Ib] 600 mg PO Q8H PRN 09/23/22 [History] Acetaminophen Tab [Tylenol Tab] 1,000 mg PO Q6HR PRN #30 tablet 09/25/22 [Rx] Ibuprofen [Motrin] 600 mg PO Q8HR PRN #30 tab 09/25/22 [Rx] Follow up Appointment(s)/Referral(s): Herber Allan MD [Medical Doctor] - 1 Week Sanju Rice MD [Primary Care Provider] - 1-2 days Patient Instructions/Handouts: *[facility] - Laparoscopic Cholecystectomy Dis charge Instructions, *[facility] - Managing Your Pain After Surgery Without Opioids Discharge Disposition: HOME SELF-CARE
== END 2022-09-25 15:49 | disposition home or self-care (01) ==
LOC: EC 20:16 → 6NMEDSUR 22:54
PROVIDERS: ADMIT Surgery; ATTEND Surgery
DX: K80.12 Calculus of gallbladder with acute and chronic cholecystitis without obstruction (principal); K82.1 Hydrops of gallbladder; R74.8 Abnormal levels of other serum enzymes; Z98.891 History of uterine scar from previous surgery
CPT/HCPCS: 96374; 99285; 36415; 81025 ×2; 88304; 80053 ×2; 82150; 83605; 83690; 85025; 76705; 74177; 47562; G0378 ×3; J2543 ×2; J2250; J0330; J1644; J1100; J2710; J2405; J3010; J1170 ×2; J1885 ×2; J2704; Q9967; J2001